=== PATIENT | female | born 1980 | race Caucasian/White ===

== ENCOUNTER 2024-04-18 13:26 | Outpatient (REF) | payer OTHER, SELFPAY ==
--- NOTE | ~2024-04-18 | XR_ITS ---
EXAMINATION: XR FINGER, LEFT CLINICAL INFORMATION: Infection COMPARISON: None available. TECHNIQUE: 3 views of the left left second digit. FINDINGS: No radiopaque foreign body, fracture, dislocation or destructive process. There may be very mild soft tissue swelling overlying the second PIP joint. No erosive change. XR/XR finger LT min 2V IMPRESSION: Unremarkable exam. Electronically signed by: Luiz Bright MD 04/19/2024 09:32 AM EDT RP
== END 2024-04-18 13:27 | disposition home or self-care (01) ==
LOC: HO.XRAY 13:26
PROVIDERS: PCP Internal Medicine; Visit Provider Internal Medicine
DX: B99.9 Unspecified infectious disease (principal)
CPT/HCPCS: 73140

== ENCOUNTER 2024-04-18 13:26 | Outpatient (AMB) | payer OTHER, SELFPAY ==
--- NOTE | 2024-04-18 13:18 | A.OFFVIS_ITS ---
Vital Signs 3 04/18/24 13:36 Weight 120 lb Pulse 81 Pulse Source Pulse Oximeter Temp 99.1 F Temp Source Oral Pulse Oximetry (%) 99 Oxygen Delivery Method Room Air Intake Visit Reasons: reff Sporotrichosis Allergies Sulfa (Sulfonamide Antibiotics) Allergy (Unknown, Verified 04/27/24 14:00) Hives HPI HPI reff Sporotrichosis: Details: She has reported dusky purple color of left second finger for three weeks. She reports only injury may have been from nayeli thorn prick while gardening. There is no fever or chills or other injuries. Area is painful on dorsal aspect. She is afraid she may have sporotrichosis. She chews her cuticles. PFSH Medical History Infection Surgical History Previous section Review of Systems Const All systems reviewed & are unremarkable except as noted in HPI and below Physical Exam Vital Signs: Last Vital Signs Temp 99.1 F 04/18/24 13:36 Pulse 81 04/18/24 13:36 Pulse Ox 99 04/18/24 13:36 Oxygen Delivery Method Room Air 04/18/24 13:36 Const Other: General: cooperative Orientation/consciousness: patient oriented x3 HEENT Head: Yes normal to inspection Mouth: Normal oral and palatal mucosa present Eyes General: appearance normal, both eyes and all related structures Pupils: Equal, round and reactive pupils present Resp Effort & Inspection: normal respiratory effort Cardio Rate: regular rate Rhythm: regular rhythm GI Palpation (GI): Soft to palpation and nontender General: Yes no CVA tenderness Back/Spine/Pelvis Back: no CVA tenderness Skin General skin exam: no rashes or lesions noted Neuro General: patient oriented x3 Cranial nerves: Yes CN's II-XII intact bilaterally and Yes Equal, round and reactive pupils present Extrem Other: discomfort left second finger DIP other fingers mild abrasions from chewing near cuticle Psych Appearance: grossly normal Assessment & Plan Assessment & Plan (1) Ganglion cyst of finger of left hand: Comment: This doesnt look like infection and 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 No antibiotics. See Orthopedics. Stop chewing fingers. Orders: Orders 2 XR finger LT min 2V 04/18/24 B99.9 - Unspecified infectious disease Coding Level of Care Code New Pt Level 3 (24047) Diagnoses Ganglion cyst of finger of left hand M67.442
[2024-04-18 13:36] VITALS: PULSE 81; TEMP 37.3; O2SAT 99
== END 2024-04-18 14:39 | disposition home or self-care (01) ==
LOC: HO.HID 13:26
PROVIDERS: PCP Internal Medicine; Visit Provider Internal Medicine
DX: M67.442 Ganglion, left hand (principal)
CPT/HCPCS: 99203

== ENCOUNTER 2024-04-27 13:54 | Outpatient (AMB) | payer OTHER, SELFPAY ==
--- NOTE | 2024-04-27 13:55 | MHC.OFFVIS ---
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 Patient was seen on 04/20/24 with infectious disease. Patient reports that she was pricked deeply by a nayeli thorn on March 03 while gardening, however this prick happened at least two weeks prior to the onset of swelling and pain. She is having mild pain all the time and increased pain with activity such as typing or when bumping the finger. Denies numbness and tingling. She has been using Diclofenac topical gel and Ibuprofen which have been helping, additionally she has been using ice and heat applications - both of which do not provide relief. 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 The patient reports that, approximately 6 weeks ago, she had a nayeli thorn prick injury in the same area, and then approximately 2 weeks this area of swelling became more noticeable. She reports that was never red or hot, but reports that it is tender to palpation and it hurts when she accidentally bangs it on a wall or corner. The patient was previously evaluated by Dr. Santiago, and the patient states that she was not concerned for infection. The patient feels as if there is a cyst under her skin in this area. Patient denies any numbness or tingling left upper extremity. No other acute complaints or concerns at this time. [facility] Medical History (Updated 04/27/24 @ 16:38 by ENDY Ojeda) Infection Surgical History (Updated 04/27/24 @ 14:01 by Jessie Mc CMA) Previous section Review of Systems Const All systems reviewed & are unremarkable except as noted in HPI and below Physical Exam Vital Signs: BMI result Body Mass Index 19.8 Extrem Other: Patient is alert, oriented, and in no acute distress. Neuro: Patient reports normal sensation in the tips of all digits of the left hand Vascular: Cap refill brisk Pain: Patient reports tenderness to palpation about a focal area of swelling and fluctuance on the dorsal and radial aspect of the PIP joint of the left index finger ROM: With encouragement, patient is able to make a closed fist and extend all digits fully Skin: No lacerations or abrasions. There is noted to be an area of focal swelling and fluctuance, with no erythema or evidence of infection, consistent with ganglion cyst of the PIP joint General: No ecchymosis, erythema, or evidence of infection. Psych: Appears grossly normal Affect normal Attitude cooperative Office Procedures FNA BIOPSY FNA Biopsy Aspiration of ganglion cyst of left index finger Results Reviewed Results Reviewed: X-rays obtained on 04/18/2024 and independently reviewed by me, Jason Cannon PA-C, demonstrate no fracture or acute bony abnormality. No radiographic evidence of infection noted. Assessment & Plan Assessment & Plan (1) Ganglion cyst of finger of left hand: Code(s): M67.442 - Ganglion, left hand Category: Medical Plan 1. Ganglion cyst of PIP joint of left index finger Ongoing for approximately 3-4 weeks At this time, there is very little evidence of any potential infection in the left index finger After consultation and discussion with Dr. Klein, it was felt that this mass likely represents a ganglion cyst on the dorsal aspect of the PIP joint of the left index finger I discussed treatment plans available to this patient, including conservative management, aspiration, and surgical removal, and the patient would like to proceed with aspiration The risks and benefits of aspiration including but not limited to risk of damage to blood vessels, nerves, tendons, infection, failure to improve symptoms, increased pain, and possible need for further injections or other intervention were discussed with the patient and the patient wishes to proceed with the steroid injection. Once consent was obtained, I aseptically prepped the area over the ganglion cyst on the dorsal aspect of the left index finger PIP. I then injected the skin over the ganglion with 1% lidocaine. I then attempted to rupture of the cyst with the 27 gauge needle while injecting lidocaine into the cyst itself. The patient tolerated the procedure well with no complications. There was visible shrinking of the cyst with this rupture, however it was still palpable If the patient continues to have this area of swelling in 2 weeks following this aspiration, they may call to schedule appointment to discuss alternative treatment options Follow-up in 2 weeks, sooner with any acute concerns Coding Level of Care Code New Pt Level 3 (91275) Diagnoses Ganglion cyst of finger of left hand M67.442
[2024-04-27 13:56] VITALS: BMI 19.8
== END 2024-04-27 14:56 | disposition home or self-care (01) ==
PROVIDERS: PCP Internal Medicine
DX: M67.442 Ganglion, left hand (principal)
CPT/HCPCS: 20612; 99203

== ENCOUNTER → 2024-04-27 13:54 | Outpatient (BNVA) | payer OTHER, SELFPAY | PROVIDERS: PCP Internal Medicine | DX: M67.442 Ganglion, left hand (principal) | CPT/HCPCS: 20612 ==